=== PATIENT | female | born 1965 | race Caucasian/White ===

== ENCOUNTER 2020-12-16 09:07 | Outpatient (CLI) | payer MEDICARE, OTHER ==
[2020-12-16] VITALS (9 sets, daily range): BP systolic 93–154; BP diastolic 61–82
[~2020-12-16] VITALS: Ht 165.1 cm; Wt 110.9 kg
[2020-12-16 09:39] LABS: HEMATOCRIT 40.6 % (36.0-47.0); HEMOGLOBIN 13.9 g/dL (12.0-15.5); RED BLOOD COUNT 4.38 x10^6/uL (3.50-5.40); RED CELL DISTRIBUTION WIDTH 13.4 % (11.5-14.5); WHITE BLOOD COUNT 9.2 x10^3/uL (4.0-11.0)
[2020-12-16 09:53] LABS: CALCIUM 8.9 mg/dL (8.5-10.1); GFR 57.6; POTASSIUM 3.9 mmol/L (3.5-5.1)
[2020-12-16] MEDS ORDERED: DOCU-109 PO (09:57)
[2020-12-16] MEDS ORDERED: ASPI-886 PO (09:57)
[2020-12-16] MEDS ORDERED: NITROGLYCERIN (09:57)
[2020-12-16] MEDS ORDERED: ISOS60TA55 PO (09:57)
[2020-12-16] MEDS ORDERED: FEXO180T16 PO (09:57)
[2020-12-16] MEDS ORDERED: CARV12.511 PO (09:57)
[2020-12-16] MEDS ORDERED: OXYC10TA46 PO (09:57)
[2020-12-16] MEDS ORDERED: MELO7.5T29 PO (09:57)
[2020-12-16] MEDS ORDERED: LEVO150T5 PO (09:57)
[2020-12-16] MEDS ORDERED: OMEP20CA16 PO (09:57)
[2020-12-16] MEDS ORDERED: TOPI25TA7 PO (09:57)
[2020-12-16] MEDS ORDERED: CYCL10TA19 PO (09:57)
[2020-12-16] MEDS ORDERED: FLUT100D2 IH (09:57)
[2020-12-16] MEDS ORDERED: RANO500T2 PO (09:57)
[2020-12-16] MEDS ORDERED: AMLO2.5T5 PO (09:57)
[2020-12-16] MEDS ORDERED: LIDOCAINE 1% PF 2 ML VIAL. ONE (10:53)
[2020-12-16] MEDS ORDERED: HEPARIN for ARTERIAL LINE 1,500 ML ONE (10:53)
[2020-12-16] MEDS ORDERED: IODIXANOL 320 MG/ML 100 ML VIAL. ONE (10:53)
[2020-12-16] MEDS ORDERED: fentaNYL PF VIAL 100 MCG/2 ML VIAL ONE (11:06)
[2020-12-16] MEDS ORDERED: MIDAZOLAM HCL/PF 2 MG/2 ML VIAL. ONE ×2 (11:06→11:20)
[2020-12-16] MEDS ORDERED: HEPARIN for IV BOLUS 10,000 UNIT/10 ML VIAL. ONE (11:06)
[2020-12-16] MEDS ORDERED: NITROGLYCERIN 200 MCG/2 ML SYRINGE FOR CATH/VASC LAB. ONE (11:06)
[2020-12-16] MEDS ORDERED: VERAPAMIL 5 MG/2 ML VIAL. ONE (11:06)
[2020-12-16] MEDS ORDERED: MIDAZOLAM HCL/PF 2 MG/2 ML VIAL. IV ONE (11:30)
[2020-12-16] MEDS ORDERED: fentaNYL PF VIAL 100 MCG/2 ML VIAL IV ONE (11:30)
[2020-12-16] MEDS ORDERED: LIDOCAINE 1% PF 2 ML VIAL. INJ ONE (11:30)
[2020-12-16] MEDS ORDERED: NITROGLYCERIN 200 MCG/2 ML SYRINGE FOR CATH/VASC LAB. IART ONE (11:30)
[2020-12-16] MEDS ORDERED: HEPARIN for IV BOLUS 10,000 UNIT/10 ML VIAL. IART ONE (11:30)
[2020-12-16] MEDS ORDERED: VERAPAMIL 5 MG/2 ML VIAL. IART ONE (11:30)
[2020-12-16] MEDS ORDERED: IODIXANOL 320 MG/ML 100 ML VIAL. IART ONE (11:30)
[2020-12-16] MEDS ORDERED: CONTRAST GIVEN. MC PRN (11:45)
--- NOTE | 2020-12-16 14:11 | NUR ---
TR band removed and arm board reapplied. Discharge instructions reviewed with patient and family. Pt ambulated and tolerated PO. Pt discharged to home in private vehicle
--- NOTE | 2020-12-16 15:29 | CARD ---
MR#: [id number] Date of Study: 12/16/2020 Ordering Physician: PRIMO LOPEZ, Referring Physician: PRIMO LOPEZ, Tech: RT Clement(R) APPROVED REPORT Technologist: Shanita English RT(R) Nurse: Ayana Huggins RN Procedure(s) performed: MODERATE SEDATION TIME: 39 MINUTES FLUORO TIME: 3.6 MIN DOSE:53.8 GYCM2 CONTRAST: 75CC VISI Left heart catheterization and coronary angiography and left ventriculogram via right radial approach . [facility] Clinical Frailty Scale [facility] Clinical Frailty Scale: Mildly Frail Heart Failure Heart Failure: No CASE TECHNIQUE IV conscious sedation was used throughout procedure with appropriate monitoring and was performed in the presence of a registered nurse who was an independent trained observer other than the physician p erforming the procedure. During this case, Fluoroscopy and low osmolar contrast were used for imaging . Specimen(s) Removed: N/A Estimated Blood loss: 15 cc's. PROCEDURE NARRATIVE Clinical information: 55-year-old woman with unstable angina. Informed consent: Written informed consent was obtained from the patient after adequate discussion of the risks and isaiah efits of the procedure. Procedure details: ACCESS: The right wrist was prepped and draped in usual sterile fashion. Under 1% lidocaine local anesthesia a 6 Croatian Terumo sheath was placed in the right radial artery via the Seldinger technique via ultra sound guidance. A hardcopy image has been stored in the PACS system. DIAGNOSTIC ANGIOGRAPHY: Right and left coronary arteries were engaged with a 6 Croatian TIG catheter. Diagnostic angiography i n multiple views were obtained. Next, a 6 Croatian pigtail catheter was placed in the left ventricle a nd a LVEDP was measured. A pullback was performed after left ventriculography. All catheters were e xchanged over J-tip guidewire. FINDINGS: ======= Aorta: 110/80 LVEDP: 15 mmHg Left ventriculogram: Ejection fraction 55% Normal wall motion without any evidence of aortic or mitral insufficiency. Coronary angiography: LM: Large caliber vessel with normal angiographic appearance LAD: Moderate caliber vessel with rapid distal tapering and mild luminal irregularities Ramus: Small caliber vessel with an ostial 30% stenosis. LCX: Large caliber non-dominant vessel with mild luminal irregularities. LPL1: Moderate caliber vessel with normal angiographic appearance RCA: Large caliber dominant vessel with normal angiographic RPDA: Moderate caliber vessel with mild luminal irregularities. CLOSURE: At case completion the right radial sheath was removed and a Terumo radial band was applied with 11 m L of air. Hemostasis was achieved. COMPLICATIONS: No acute complications noted Conclusion 1 normal left-sided filling pressures 2. Normal LV systolic function, EF 55% 3. No significant coronary artery disease. Recommendations Aggressive Medical Therapy Medical Therapy Weight Loss Reduction Program Signed by : Primo Lopez, Electronically Approved : 12/16/2020 15:28:49
--- NOTE | 2020-12-16 16:17 | CARD ---
MR#: [id number] Date of Study: 12/16/2020 Ordering Physician: PRIMO HERNANDEZ, Referring Physician: PRIMO HERNANDEZ, Tech: Iglesia Saldaña [facility] APPROVED REPORT EXAM: Two-dimensional and M-mode echocardiogram with Doppler and color Doppler. Other Information Quality : FairHR: 78bpm Rhythm : NSR INDICATION Cardiac Disease: Chest Pain RISK FACTORS Obesity 2D DIMENSIONS Left Atrium(2D)3.9 (1.6-4.0cm)IVSd1.1 (0.7-1.1cm) Aortic Root(2D)2.7 (2.0-3.7cm)LVDd4.3 (3.9-5.9cm) LVOT Diameter1.9 (1.8-2.4cm)PWd1.1 (0.7-1.1cm) LVDs2.9 (2.5-4.0cm)FS (%) 32.0 % SV49.4 mlLVEF(%)60.5 (>50%) Aortic Valve AoV Peak Harry.170.5cm/sAoV VTI29.4cm AO Peak GR.11.6mmHgLVOT Peak Harry.120.8cm/s LVOT VTI 22.01cmAO Mean GR.6mmHg ARNULFO (VMAX)1.44nt6RZZ (VTI)2.14cm2 Mitral Valve MV E Wsjutcxu14.3cm/sMV DECEL SAXU166ot MV A Whpsueis41.0cm/sMV YST32lg E/A Ratio1.0MVA (PHT)3.35cm2 TDI E/Lateral E'12.8E/Medial E'15.4 Pulmonary Valve PV Peak Shujaceh369.0cm/sPV Peak Grad.6mmHg Tricuspid Valve TR P. Xzycriau958gn/sTR Peak Gr.19mmHg Pulmonary Vein S1 Zugwgzhh16.2cm/sD2 Smdfrtad70.8cm/s LEFT VENTRICLE The left ventricle is normal size. There is normal left ventricular wall thickness. The left ventricu lar systolic function is normal. The ejection fraction is 55-60%. There is normal LV segmental wall m otion. No left ventricle thrombus noted on this study. There is no ventricular septal defect visualiz ed. There is no left ventricular aneurysm. There is no mass noted in the left ventricle. RIGHT VENTRICLE The right ventricle is normal size. There is normal right ventricular wall thickness. The right ventr icular systolic function is normal. ATRIA The left atrium is mildly dilated. The right atrium size is normal. The interatrial septum is intact with no evidence for an atrial septal defect or patent foramen ovale as noted on 2-D or Doppler imagi ng. AORTIC VALVE The aortic valve is normal in structure and function. Doppler and Color Flow revealed no significant aortic regurgitation. There is no significant aortic valvular stenosis. There is no aortic valvular v egetation. MITRAL VALVE The mitral valve is normal in structure and function. There is no evidence of mitral valve prolapse. There is no mitral valve stenosis. Doppler and Color-flow revealed trace mitral regurgitation. TRICUSPID VALVE The tricuspid valve is normal in structure and function. Doppler and Color Flow revealed trace tricus pid regurgitation. The PA pressure was estimated at 30 mmHg. There is no tricuspid valve prolapse or vegetation. There is no tricuspid valve stenosis. PULMONIC VALVE Doppler and Color Flow revealed no pulmonic valvular regurgitation. There is no pulmonic valvular javed nosis. GREAT VESSELS The aortic root is normal in size. The ascending aorta is normal in size. The IVC is normal in size a nd collapses >50% with inspiration. PERICARDIAL EFFUSION There is no pleural effusion. There is no evidence of significant pericardial effusion. Critical Notification Critical Value: No <Conclusion> The left ventricular systolic function is normal. The ejection fraction is 55-60%. There is normal LV segmental wall motion. Trace mitral regurgitation. Trace tricuspid regurgitation. The PA pressure was estimated at 30 mmHg. There is no evidence of significant pericardial effusion. Signed by : Duke Gomez, Electronically Approved : 12/16/2020 16:16:53
== END 2020-12-16 14:16 | disposition home or self-care (01) ==
LOC: CCL 09:07
PROVIDERS: ATTEND Internal Medicine Cardiovascular Disease
DX: I25.110 Atherosclerotic heart disease of native coronary artery with unstable angina pectoris (principal); I10 Essential (primary) hypertension; J44.9 Chronic obstructive pulmonary disease, unspecified; M19.90 Unspecified osteoarthritis, unspecified site; Z90.49 Acquired absence of other specified parts of digestive tract; Z90.710 Acquired absence of both cervix and uterus; Z98.51 Tubal ligation status; Z98.890 Other specified postprocedural states; Z87.891 Personal history of nicotine dependence; Z79.82 Long term (current) use of aspirin; Z79.899 Other long term (current) drug therapy; Z88.6 Allergy status to analgesic agent
CPT/HCPCS: 36415; 76937; 80048; 85027; 93306; 93458; 99152; 99153; C1769; C1894; J1644; J2250; J3010; J3490; Q9967

== ENCOUNTER → 2021-03-17 | Outpatient (CLI) | payer MEDICARE, OTHER ==
[2020-12-16 13:35] VITALS: BP 140/72
[~2021-03-17] MED LIST: AMLO2.5T5 PO; ASPI-886 PO; CARV12.511 PO; CYCL10TA19 PO; DOCU-109 PO; FEXO180T16 PO; FLUT100D2 IH; ISOS60TA55 PO; LEVO150T5 PO; MELO7.5T29 PO; NITROGLYCERIN; OMEP20CA16 PO; OXYC10TA46 PO; RANO500T2 PO; TOPI25TA7 PO
--- NOTE | 2021-03-17 16:49 | KCIC ---
EXAMINATION: 1. MRI LEFT ANKLE WITHOUT CONTRAST. 2. MRI LEFT FOOT WITHOUT CONTRAST INDICATIONS: 1.Prior plantar fasciotomy with persistent heel pain. 2. Left foot pain. Stepped in hole August 4. Pain in third, fourth, fifth metatarsal and heel. Metatars algia of left foot. Chronic forefoot pain. Evaluate for neuroma or capsulitis. TECHNIQUE: 1. Multiplanar multisequence MRI of the left ankle without contrast. 2. Multiplanar multisequence MRI of the left forefoot without contrast. COMPARISON: None. FINDINGS: MRI ANKLE: BONES AND CARTILAGE: No acute fracture. Marrow signal is normal. There is no osteochondral lesion. No significant degenerative changes. LIGAMENTS: Anterior and posterior inferior tibiofibular ligaments and interosseous ligament are intac t. Anterior and posterior talofibular ligament and calcaneofibular ligament are intact. Deltoid ligam ent is intact. TENDONS: The medial flexor, anterior extensor, peroneal, and Achilles tendons are intact. No tenosyno vitis. PLANTAR FASCIA: There is an intermediate signal defect in the central bundle of the plantar fascia pr oximally measuring about 1 cm in length, consistent with history of fasciotomy. The entire fascia jus t distal to the defect is mildly thickened measuring 7 mm but low in signal. There is no significant surrounding edema. Findings are favored to be post surgical changes. There is a small plantar calcane al enthesophyte without marrow edema. OTHER: Muscles are normal signal and bulk. No joint effusion. Sinus Tarsi is normal. MRI FOOT: BONES AND CARTILAGE: No acute fracture. Marrow signal is normal. No degenerative changes or erosions. LIGAMENTS: The Lisfranc ligament is intact. Plantar plates and joint capsules are unremarkable. TENDONS: Distal flexor and extensor tendons are intact. INTERMETATARSAL SPACES: There is a small mildly T2 hyperintense, T1 hypointense structure in the thir d intermetatarsal space measuring about 8 x 3 mm, suspicious for a Keene neuroma (image [id number] series 10 and 11). No intermetatarsal bursitis. OTHER:Small amount of fluid in the MTP joints. Muscles are normal in signal. Subcutaneous soft tissue is normal. IMPRESSION: 1. Surgical changes of plantar fasciotomy. Mild thickening of the plantar fascia just distal to the f asciotomy without surrounding edema, favored to be postsurgical changes. 2. 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 Electronically signed by: Sarah Partida MD (03/17/2021 4:47 PM) [id number]
== END ==
LOC: KCIC MRI 13:33
PROVIDERS: ATTEND Podiatrist
DX: M77.32 Calcaneal spur, left foot (principal); M25.872 Other specified joint disorders, left ankle and foot; M77.42 Metatarsalgia, left foot; Z98.890 Other specified postprocedural states
CPT/HCPCS: 73718; 73721